=== PATIENT | male | born 1980 | race Caucasian/White ===

== ENCOUNTER 2019-06-28 03:27 | Emergency (ER) | payer OTHER, SELFPAY ==
[2019-06-28 03:28] VITALS: BP 115/94; PULSE 88; RESP 16; TEMP 36.9; O2SAT 96; BMI 28.2
--- NOTE | 2019-06-28 03:41 | RAD_ITS ---
STUDY: X-RAY - RIGHT FOOT CLINICAL: Male, 38 years old. Trauma to right foot. Swelling third and fourth digits. TECHNIQUE: 3 view(s) of the foot. COMPARISON: None. FINDINGS: Normal talus, calcaneus, and tarsal bones. Normal visualized subtalar, talonavicular, calcaneocuboid, tarsal and tarsometatarsal articulations. Normal metatarsi. Normal metatarsophalangeal joint of the great toe. Normal tibial and fibular sesamoid bones. Normal interphalangeal joint of the great toe. Normal phalanges of the great toe. Normal second through fifth metatarsophalangeal joints. There is probably a tuft fracture as well as a nondisplaced fracture proximal metaphysis, both involving the distal phalanx of the fourth toe. The soft tissue structures are unremarkable. RAD/Foot min 3 Views IMPRESSION: Probable comminuted fracture distal phalanx of the fourth toe. Electronically Signed: David Chamberlain MD at 4:05 EST , Service support ,
--- NOTE | 2019-06-28 03:45 | ED.DCSUM_ITS ---
- ER Visit Summary Date of Service: 06/28/19 Chief Complaint: [Injury to right foot] History of Present Illness: The patient is a 38 M [presents to the emergency department with an injury to the right foot that occurred earlier today while at work. Patient states that he had a heavy cart wheel rolled over the top of his right foot. Patient was wearing tennis shoes at the time. Patient able to bear weight but having pain over the third and fourth toes.] Physical Examination: [Right foot-patient has ecchymosis and bruising over the third and fourth toes. Patient has a superficial abrasion to the dorsum of the distal phalanx of the third toe. No obvious deformity. Neurovascular intact.] Test Results: [X-rays of the right foot obtained showed a fracture of the distal phalanx of the fourth toe.] Emergency Department Course and Treatment: [Patient had the superficial abrasion of the third toe cleaned. Patient had toes radha taped. Patient refused crutches. Patient did not want anything for pain in the department.] Treatment Plan: [Follow-up with [facility] in 5 to 7 days] Disposition: [Discharged home in stable condition.] Impression: [Right fourth toe fracture distal phalanx] This note was generated with [employer] dictation software. It may contain incorrect words, spelling, and punctuation that were not noted in review of the chart prior to signing ED Disposition - Plan for ED Patient: Referrals: NOT,DEFINED [NON-STAFF] -
--- NOTE | 2019-06-28 04:19 | ED.DEP ---
ED Disposition - Plan for ED Patient: Instructions: FRACTURE, Toe [Closed] Referrals: NOT,DEFINED [NON-STAFF] - [facility] [GROUP OF PHYSICIANS] - 5-7 Days
[2019-06-28 04:31] VITALS: BP 158/98; PULSE 111; RESP 12; O2SAT 95
== END 2019-06-28 04:32 | disposition home or self-care (01) ==
LOC: ED 03:56
PROVIDERS: Emergency Provider Emergency Medicine
DX: S92.504A Nondisplaced unspecified fracture of right lesser toe(s), initial encounter for closed fracture (principal); Z72.0 Tobacco use; X58.XXXA Exposure to other specified factors, initial encounter; Y93.89 Activity, other specified; Y92.89 Other specified places as the place of occurrence of the external cause; Y99.0 Civilian activity done for income or pay
CPT/HCPCS: 73630; 99282

== ENCOUNTER 2020-07-09 18:24 | Emergency (ER) | payer SELFPAY ==
[2020-07-09 18:24] VITALS: BP 156/106; PULSE 98; RESP 16; TEMP 36.4; O2SAT 98; BMI 27.3
--- NOTE | 2020-07-09 18:30 | RAD_ITS ---
STUDY: X-RAY - LEFT HAND REASON FOR EXAM: Male, 39 years old. SMASH INJURY ABOUT 1 MONTH AGO . ATTN TO 3RD DIGIT TECHNIQUE: 3 view(s) of the hand. COMPARISON: None. FINDINGS: Normal radiocarpal articulation. Normal distal radioulnar joint. Normal visualized carpal bones. Normal carpal articulations Normal carpometacarpal articulation of the thumb. Normal second through fifth carpometacarpal joints. Normal metacarpi. Normal metacarpophalangeal joint of the thumb. Normal interphalangeal joint of the thumb. Normal proximal and distal phalanges of the thumb. Normal metacarpophalangeal joints of the second through fifth fingers. Normal proximal and distal interphalangeal joints of the second through fifth fingers. Normal phalanges of the second through fifth fingers. There is focal soft tissue swelling of the mid to distal third digit RAD/Hand Min 3 Views IMPRESSION: Soft tissue swelling without evidence for acute fracture or dislocation Electronically Signed: Gianfranco Millan MD at 19:14 EST , Service support ,
[2020-07-09] MEDS: Naproxen 500 MG Tablet PO (19:13)
[2020-07-09] MEDS: Doxycycline 100 MG CAPSULE PO (19:13)
--- NOTE | 2020-07-09 19:13 | ED.VIS.GEN ---
History of Present Illness Chief Complaint: Upper Extremity Injury Informant: Patient Onset: Weeks Current Severity: Moderate Maximum Severity: Moderate Narrative: Patient presents with pain and swelling to the left third finger. He had a crush injury to that finger approximate 1 month ago. He states he had minimal pain and really did not have significant problems. Over the last 2 days he had increased pain and swelling worse at the DIP joint. No paresthesias. Past Medical History - Allergies and Home Meds Allergies/Adverse Reactions: Allergies milk Adverse Reaction (Verified 07/09/20 18:27) Diarrhea Primary Care Physician: Care Physician,No Primary [Primary Care Provider] - Past Medical History: None Smoking Status: Never smoker Review of Systems General: Denies: Chills, Fever Eyes: Denies: Visual changes - bilaterally ENT: Denies: Bilateral ear pain Cardiovascular: Denies: Chest pain Respiratory: Denies: Dyspnea, Cough Gastrointestinal: Denies: Abdominal pain Musculoskeletal: Reports: Swelling, Extremity Pain Skin: Denies: Rash Neurological: Denies: Headache Hematologic: Denies: Easy bruising, Easy bleeding Allergy: Denies: Uticaria Physical Exam Vital Signs/Narrative: Vital Signs Temp Pulse Resp BP Pulse Ox 07/09/20 18:24 97.6 F L 98 16 156/106 H 98 Inital Vital Signs reviewed: Yes General: Well nourished, Well developed Head: Normocephalic ENT: Moist mucous membranes Neck: Supple Cardiovascular: Regular rate, Regular rhythm Respiratory: No distress, CTA bilaterally Abdomen: Soft, Nontender Extremities: - - Calluses noted to the palmar surface of the hand and fingers. He has focal swelling along the distal aspect of the middle phalanx, left third finger. There is very minimal erythema. No significant warmth. He does have slight decreased range of motion secondary to swelling. Neurological: Alert, Oriented x3 Psychological: Normal affect Diagnostic/Tx/Re-eval Left hand x-rays per my review reveal soft tissue swelling. Normal osseous structures. - Medical Decision Making AlumaFoam splint will be placed. Patient be covered with doxycycline. He was advised if he gets worsening erythema or warmth he is to return for possible I&D. I do not think that this is an abscess at this time. ED Disposition - Plan for ED Patient: Disposition: Home or Assisted Living Diagnosis: Sprain of left middle finger, Cellulitis Instructions: ED EXTREMITY CONTUSION Upper Prescriptions: Doxycycline 100 mg PO BID #20 cap Transmission Status: Pending to [id number] Naproxen [Naprosyn] 500 mg PO BID PRN PRN #20 tab PRN Reason: Pain Score 4-10 Transmission Status: Pending to [id number] Referrals: Nikky Long [NON-STAFF] - 5-7 Days
== END 2020-07-09 19:29 | disposition home or self-care (01) ==
LOC: ED 19:26
PROVIDERS: Emergency Provider Emergency Medicine
DX: S63.613A Unspecified sprain of left middle finger, initial encounter (principal); L03.90 Cellulitis, unspecified; X58.XXXA Exposure to other specified factors, initial encounter
CPT/HCPCS: 73130; 99283